=== PATIENT | female | born 1985 | race Caucasian/White ===

== ENCOUNTER 2025-02-20 15:25 | Emergency (ER) | payer OTHER, SELFPAY ==
[2025-02-20 15:27] VITALS: BP 138/97
[2025-02-20 16:02] LABS: COVID-19 Antigen Negative (Negative)
--- NOTE | 2025-02-20 17:44 | ED.GENMED ---
History of Present Illness
General
Chief Complaint: Fatigue
Source: patient
Exam Limitations: none
Time Seen by Provider: 02/20/25 17:32
History of Present Illness
History of Present Illness:
40yoF with no significant past medical history presenting with her for evaluation of malaise. Patient has been feeling unwell for the past 3 days since returning from a trip to [place], [place] for a wedding. She reports fatigue,
generalized weakness, and decreased appetite. She has not been eating or drinking much due to her symptoms. She reports losing about 9 pounds since last week. She has been feeling warm and has had intermittent sweats but has not been checking her
temperature. She had 1 episode of diarrhea yesterday and 1 episode of diarrhea today. She is otherwise asymptomatic and denies any headache, sore throat, ear pain, rash, chest pain, shortness of breath, abdominal pain, vomiting, dysuria. Patient
reports urinating normally. No one else on the trip is sick that she knows of.
Phy Exam
General Physical Exam
General Presentation: well appearing and no apparent distress
General age: appears stated age
General Skin: warm and dry
General Habitus: normal
General Mental: alert
ENT Exam
ENT Exam: TM's normal, pharynx normal, neck supple and normocephalic
Eye Exam
Eye Exam: conjunctiva normal
Cardiovascular Exam
Cardiovascular Exam: regular rate/rhythm and no murmur
Pulmonary Exam
Pulmonary Exam: lungs clear, no respiratory distress, no rales, no crackles, no rhonchi and no wheezing
Gastrointestinal Exam
Gastrointestinal Exam: non tender, soft and non distended
Neurological Exam
Neurological Exam: alert and other (Ambulated with a steady gait to the bathroom)
[place] Coma Scale
Eye Opening: Spontaneous
Verbal Response: Oriented
Motor Response: Obeys Commands
GCS Total Score: 15
Skin Exam
Skin Exam: normal color and warm/dry
Psychiatric Exam
Psychiatric Exam: normal mood/affect
Course
Orders/Labs/Results
Orders:
Orders
02/20/25 15:33
COVID-19 Antigen Urgent
Source: Nasal Swab
Influenza A+B Rapid Molecular Urgent
[place] Source: Nasal Swab
Specimen Description:
02/20/25 17:42
0.9% Sodium Chloride 1000 ml [Nss] 1,000 ml IV BOLUS
02/20/25 17:43
Test Result ONCE
02/20/25 17:59
Electrocardiogram (*1) Urgent
Reason for Study: Fatigue / Weakness
EKG- Treatment ONCE
02/20/25 18:08
Complete Blood Count/With Diff Urgent
Comprehensive Metabolic Panel Urgent
HCG, Serum Qualitative Screen Urgent
Magnesium Urgent
TSH Reflex To Free T4 Urgent
02/20/25 18:17
Urinalysis Reflex To Culture Urgent
Date Specimen was Collected: 02/20/25
Time Specimen was Collected: 18:16
Urine Microscopic Reflex Cult Urgent
Urine Culture Urgent
[place] Source: U
Specimen Description:
Date Specimen was Collected: 02/20/25
Time Specimen was Collected: 18:16
02/20/25 20:12
0.9% Sodium Chloride 1000 ml [Nss] 1,000 ml IV BOLUS
Abnormal Lab Results
02/20/25 02/20/25
18:08 18:17
RBC 4.11 L 10^6/uL
(4.20-5.40)
Hct 36.9 L %
(37.0-47.0)
MCH 32.4 H pg
(27.0-31.0)
RDW 11.3 L %
(11.5-14.5)
BUN 22 H mg/dl
(7-17)
Glucose 113 H mg/dl
(70-99)
Albumin 5.1 H g/dl
(3.5-5.0)
Urine Ketones 3+ A
(Negative)
Ur Occult Blood Reflex 1+ A
(Negative)
Leukocyte Esterase Rfl 1+ A
(Negative)
Urine Albumin (Reflex) 1+ A
(Neg - Trace)
02/20/25 18:08
02/20/25 18:08
Vital Signs
Initial and Last Documented VS:
Initial Vital Signs
Temp Pulse Resp BP Pulse Ox
97.9 F 122 20 138/97 98
02/20/25 15:27 02/20/25 15:27 02/20/25 15:27 02/20/25 15:27 02/20/25 15:27
Last Documented Vital Signs
Temp Pulse Resp BP Pulse Ox
98.9 F 95 16 103/60 100
02/20/25 21:50 02/20/25 21:50 02/20/25 21:50 02/20/25 21:50 02/20/25 21:50
MDM/Problems Addressed
Differential Diagnosis Includes:
40yoF here with malaise and poor appetite x 2-3 days. Reports subjective fevers but has not been checking her temperatures. Temp 97.9 here. HR 122 in triage but is normal on initial exam. Exam is reassuring without any focal signs of infection.
Differential diagnosis includes but is not limited to: viral illness, dehydration, JAIME, electrolyte abnormality
Initial ED plan: COVID/flu swab sent in triage negative. Check CBC, CMP, magnesium, TSH, HCG, EKG, and UA. IV fluid bolus.
*EKG
Interpreted by ED Provider?: Yes
EKG Intrepretation Date: 02/20/25
Heart Rate: 62
Rate: normal
Rhythm: sinus and PAC's
[place]: normal axis
Interval: normal interval
QRS Pattern: normal QRS
Ischemia: no ischemia
*Critical Care Note
Total Time (30-74mins, 75-104mins- exclusive of procedures): Not Applicable
Update Note
Update Note:
Labs overall unremarkable including normal blood counts, electrolytes, TSH, and creatinine. UA with 3+ ketones suggesting some degree of dehydration. Second liter of normal saline given. EKG shows NSR without ischemic changes. Vitals remain
stable. No indication for hospitalization at this time. Unclear etiology of symptoms, possible viral illness. Advised f/u with PCP this week. ED return precautions discussed. Patient and in agreement with plan and patient discharged in
stable condition.
ED Attending Note
-
Portions of this chart may have been created with voice recognition software.� Occasional wrong word or��sound alike� substitutions may have occurred due to the inherent limitations of voice recognition software.
Discharge Plan
Departure
Patient Disposition: Home (Routine Discharge)
Date of Disposition: 02/20/25
Time of Disposition: 21:34
Patient with high blood pressure during this ER visit?: No
Discharge Problem:
Malaise and fatigue
Instructions: Fatigue (DC)
Referrals:
Andrés Orlando DO [Family Provider] -
Activity Restrictions/Additional Instructions:
Drink plenty of fluids and rest.
Please call your family doctor tomorrow to schedule a follow-up appointment this week. Return to the ER with any new or worsening symptoms.
Interventions
Interventions:
*Risk Screen - Suicide Last Done: 02/20/25 15:27
*General Assessment Last Done: 02/20/25 15:27
*Neglect/Abuse Screening Last Done: 02/20/25 21:50
*ED- Fall Risk Assessment Last Done: 02/20/25 18:13
*ED COVID-19 Vaccine History Last Done: 02/20/25 18:13
*Nursing Disposition Last Done: 02/20/25 21:50
Discharge Date and Time
Discharge Date/Time: 02/20/25 21:50
Print Language: [id number]
[2025-02-20] MEDS: NSS 1000 IV ×2 (18:07→20:22)
[2025-02-20 18:12] VITALS: BMI 20.8
[2025-02-20 18:26] LABS: % Basophils 0.3 % (0-2); % Eosinophils 0.3 % (0-6); % Immature Granulocytes 0.3 % (0-0.5); % Lymphocytes 22.3 % (20.5-51.1); % Monocytes 8.1 % (1.7-9.3); % Neutrophils 68.7 % (42.2-75.2); Absolute Lymphocytes 1.3 10^3/uL (1.2-3.4); Absolute Monocytes 0.5 10^3/uL (0.1-0.6); Absolute Neutrophils 4.1 10^3/uL (1.4-6.5); Hematocrit 36.9 % (37.0-47.0); Hemoglobin 13.3 g/dL (12.0-16.0); Mean Corpuscular Hgb 32.4 pg (27.0-31.0); Mean Corpuscular Volume 89.8 fL (81.0-99.0); Nucleated Red Blood Cells % 0 %; Platelet Count 193 10^3/uL (130-400); Red Blood Cell Count 4.11 10^6/uL (4.20-5.40); Red Cell Dist. Width 11.3 % (11.5-14.5); White Blood Cell Count 5.9 10^3/uL (4.8-10.8)
[2025-02-20 18:27] LABS: Urine Albumin 1+ (Neg - Trace); Urine Bilirubin Negative (Negative); Urine Character Clear (Clear); Urine Color Yellow; Urine Glucose Negative (Negative); Urine Ketone 3+ (Negative); Urine Leukocyte 1+ (Negative); Urine Nitrite Negative (Negative); Urine Occult Blood 1+ (Negative); Urine Urobilinogen 1+ (Neg - 1+)
[2025-02-20 18:37] LABS: HCG, Serum Qualitative Screen Negative
[2025-02-20 18:39] LABS: ALT (SGPT) 19 U/L (0-35); AST (SGOT) 22 U/L (14-36); Albumin 5.1 g/dl (3.5-5.0); Alkaline Phosphatase 49 U/L (38-126); Blood Urea Nitrogen 22 mg/dl (7-17); Calcium 9.5 mg/dl (8.4-10.2); Carbon Dioxide 24 mmol/L (22-30); Chloride 105 mmol/L (98-107); Estimated Creatinine Clearance 109 ml/min; Glucose 113 mg/dl (70-99); Magnesium 1.9 mg/dl (1.6-2.3); Potassium 3.8 mmol/L (3.5-5.1); Sodium 140 mmol/L (135-145); Total Protein 7.4 g/dl (6.3-8.2); eGFR > 60.00
[2025-02-20 18:42] LABS: Urine Red Blood Cell 0-2 /HPF (0-2)
[2025-02-20 19:11] LABS: TSH Reflex To Free T4 0.89 uIU/ml (0.47-4.68)
[2025-02-20 20:05] VITALS: BP 93/44
[2025-02-20 20:07] VITALS: BP 92/59
[2025-02-20 21:32] VITALS: BP 103/60
[2025-02-20 21:50] VITALS: BP 103/60
== END 2025-02-20 21:50 | disposition home or self-care (01) ==
LOC: EMR 15:25
PROVIDERS: Physician Assistant; EMERGENCY PHYSICIAN Emergency Medicine; FAMILY PHYSICIAN Family Medicine
DX: R53.83 Other fatigue (principal); R53.81 Other malaise; I49.1 Atrial premature depolarization; R19.7 Diarrhea, unspecified
CPT/HCPCS: 96360; 96361; 99284; 80053; 81003; 81015; 83735; 84443; 84703; 85025; 87086; 87502; 87811; 93005